=== PATIENT | female | born 1950 | race Caucasian/White ===

== ENCOUNTER → 2019-11-13 | Day surgery (SDC) | payer MEDICARE, BC ==
[~2019-11-13] MED LIST: Bupivacaine 0.25% 10 ML SDV ONE; Ketorolac 15 MG/ML SDV ONE; Lactated Ringers 1,000 ML IV SCH; Lidocaine 0.5% 50 ML SDV ONE; Lidocaine 1% 4 ML ONE; Lidocaine 1%/Sod Bicarbonate in NS 8.4% 1 ML Syringe IDERM PRN; Midazolam 1 MG/ML 2 ML SDV ONE; Ondansetron 4 MG/2 ML SDV IVPUSH PRN; Propofol 200 MG/20 ML SDV ONE; Sodium Bicarbonate 8.4% 50 MEQ/50 ML SDV ONE; Sodium Chloride 0.9% 10 ML Syringe FLUSH PRN; ceFAZolin 1 GM Vial ONE; fentaNYL 100 MCG/2 ML SDV IVPUSH PRN; fentaNYL 100 MCG/2 ML SDV ONE
--- NOTE | 2019-11-13 07:33 | PCM.PREANE ---
Preanesthetic Assessment - Procedure Proposed Procedure: left carpal tunnel and release thumb - Anesthesia/Transfusion/Family Hx Anesthesia History: Prior Anesthesia Without Reaction Family History of Anesthesia Reaction: No Transfusion History: No Prior Transfusion(s) - Review of Systems General: No Symptoms Pulmonary: No Symptoms Cardiovascular: No Symptoms Gastrointestinal: No Symptoms Neurological: No Symptoms Other: Reports: None - Physical Assessment NPO Status Date: 11/12/19 NPO Status Time: 19:00 Vital Signs: Last Vital Signs Temp 96.8 F L 11/13/19 06:20 Pulse 64 11/13/19 06:20 Resp 16 11/13/19 06:20 BP 122/61 11/13/19 06:20 Pulse Ox 94 L 11/13/19 06:20 Height: 5 ft Weight: 69.4 kg ASA Class: 2 Mental Status: Alert & Oriented x3 Airway Class: Mallampati = 1 Dentition: Reports: Normal Dentition Thyro-Mental Finger Breadths: 3 Mouth Opening Finger Breadths: 3 ROM/Head Extension: Full Lungs: Clear to Auscultation, Normal Respiratory Effort Cardiovascular: Regular Rate, Regular Rhythm - Allergies Allergies/Adverse Reactions: Allergies Allergy/AdvReac Type Severity Reaction Status Date / Time No Known Allergies Allergy Verified 11/12/19 15:48 - Blood Blood Available: No - Acknowledgements Anesthesia Type Planned: LISETTE Pt an Appropriate Candidate for the Planned Anesthesia: Yes Alternatives and Risks of Anesthesia Discussed w Pt/Guardian: Yes Pt/Guardian Understands and Agrees with Anesthesia Plan: Yes PreAnesthesia Questionnaire HEENT History: Reports: Impaired Vision, Other (See Below) Other HEENT History: wears glasses Cardiovascular History: Reports: High Cholesterol Respiratory History: Reports: None Gastrointestinal History: Reports: None Genitourinary History: Reports: None 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 Musculoskeletal History: Reports: Other (See Below) Other Musculoskeletal History: left thumb trigger finger, left hand pisiform Neurological History: Reports: None Psychiatric History: Reports: None Endocrine/Metabolic History: Reports: None Hematologic History: Reports: None Immunologic History: Reports: None Oncologic (Cancer) History: Reports: None Dermatologic History: Reports: None - Past Surgical History Head Surgeries/Procedures: Reports: None HEENT Surgical History: Reports: None Cardiovascular Surgical History: Reports: None Respiratory Surgical History: Reports: None GI Surgical History: Reports: Colonoscopy Female Surgical History: Reports: Hysterectomy Male Surgical History: Reports: None Endocrine Surgical History: Reports: None Neurological Surgical History: Reports: None Musculoskeletal Surgical History: Reports: Other (See Below) (wrist surgery) Oncologic Surgical History: Reports: None Dermatological Surgical History: Reports: None - SUBSTANCE USE Smoking Status *Q: Never Smoker Tobacco Use Within Last Twelve Months: No Second Hand Smoke Exposure: No Days Per Week of Alcohol Use: 0 Recreational Drug Use History: No - HOME MEDS Home Medications: Home Meds Albuterol [Proventil HFA] 1 - 2 puff INH Q4H PRN 11/12/19 [History] atorvaSTATin [Lipitor] 10 mg PO DAILY 11/12/19 [History] - CURRENT (IN HOUSE) MEDS Current Meds: Current Medications Lactated Ringer's (Ringers, Lactated) 1,000 mls @ 125 mls/hr IV ASDIRECTED AMINA Stop: 11/13/19 23:00 Last Admin: 11/13/19 06:50 Dose: 125 mls/hr Documented by: Lidocaine/Sodium Bicarbonate (Buffered Lidocaine 1% In Ns 8.4%) 0.25 ml IDERM ONETIME PRN PRN Reason: Prior to IV Start Stop: 11/13/19 18:00 Last Admin: 11/13/19 06:49 Dose: 0.25 ml Documented by: Sodium Chloride (Saline Flush) 10 ml FLUSH ASDIRECTED PRN PRN Reason: Keep Vein Open Stop: 11/13/19 18:00 Discontinued Medications Cefazolin Sodium (Ancef) Confirm Administered Dose 2 gm .ROUTE .STK-MED ONE Stop: 11/13/19 07:17 Fentanyl (Sublimaze) Confirm Administered Dose 100 mcg .ROUTE .STK-MED ONE Stop: 11/13/19 07:15 Lidocaine HCl (Xylocaine-Mpf 1%) Confirm Administered Dose 4 mls @ as directed .ROUTE .STK-MED ONE Stop: 11/13/19 07:14 Lidocaine HCl (Xylocaine-Mpf 0.5%) Confirm Administered Dose 50 ml .ROUTE .STK- MED ONE Stop: 11/13/19 07:18 Midazolam HCl (Versed 1 Mg/Ml) Confirm Administered Dose 2 mg .ROUTE .STK-MED ONE Stop: 11/13/19 07:15 Propofol (Diprivan 20 Ml) Confirm Administered Dose 200 mg .ROUTE .STK-MED ONE Stop: 11/13/19 07:14 Sodium Bicarbonate (Sodium Bicarbonate 8.4%) Confirm Administered Dose 50 meq .ROUTE .STK-MED ONE Stop: 11/13/19 07:18
--- NOTE | 2019-11-13 09:13 | PCM48HPAN ---
Post Anesthesia Note - EVALUATION WITHIN 48HRS OF ANESTHETIC Vital Signs in Normal Range: Yes Patient Participated in Evaluation: Yes Respiratory Function Stable: Yes Airway Patent: Yes Cardiovascular Function Stable: Yes Hydration Status Stable: Yes Pain Control Satisfactory: Yes Nausea and Vomiting Control Satisfactory: Yes Mental Status Recovered: Yes Vital Signs: Last Vital Signs Temp 96.8 F L 11/13/19 06:20 Pulse 64 11/13/19 06:20 Resp 16 11/13/19 06:20 BP 122/61 11/13/19 06:20 Pulse Ox 94 L 11/13/19 06:20 0906 52 16 97.1 111/59 94%
--- NOTE | 2019-11-24 07:55 | OR ---
DATE OF OPERATION: 11/13/2019 SURGEON: Ronnie Rincon MD PREOPERATIVE DIAGNOSIS: 1. Left carpal tunnel syndrome. 2. Left thumb stenosing tenosynovitis. POSTOPERATIVE DIAGNOSIS: 1. Left carpal tunnel syndrome. 2. Left thumb stenosing tenosynovitis. OPERATION PERFORMED: 1. Left open carpal tunnel release, 35464. 2. Left thumb A1 nasreen release, 61878. WORKERS COMPENSATION ATTORNEY: Nani. DESCRIPTION OF PROCEDURE: The patient is a pleasant female with symptomatic left carpal tunnel syndrome as well as stenosing tenosynovitis of her left thumb. The patient wished to proceed with surgery. The patient was brought to the operating room and underwent appropriate anesthesia. Left upper extremity was prepped and draped in standard orthopedic fashion. A surgical pause was performed identifying the appropriate patient and appropriate extremity to be operated upon. Preoperative antibiotics were given. Made a longitudinal incision between the thenar and hypothenar eminence. Sharp dissection was carried down through the skin and subcutaneous tissue. Hemostasis was obtained. She did have a traversing sensory branch which was mobilized and protected. We incised the palmar fascial fibers down to the transverse carpal ligament. Utilizing [place] blade, we opened the ulnar aspect of the transverse carpal ligament and released the transverse carpal ligament down to the superficial palmar arch. We turned our attention proximally and released the transverse carpal ligament as well as antebrachial fascia 2 to 3 cm proximal to the wrist crease. It did show us she had some fusiform compression of the nerve at the junction between the transverse carpal ligament and antebrachial fascia. No other abnormalities were noted other than some synovitis. We turned our attention to left thumb, made a transverse incision over left thumb MP flexion crease. Sharp dissection was carried down through the skin and subcutaneous tissue. Hemostasis was obtained. Dissected down and identified the radial and ulnar neurovascular bundles, those were protected. Incised at the A1 nasreen and reached the flexor tendon sheath proximally. She had some fair amount of fluid within the flexor tendon sheath. With passive flexion, she had no mechanical symptoms. The wounds were irrigated thoroughly. The wounds were then closed with 5-0 nylon. She was placed in a soft dressing and brought to the recovery room in satisfactory condition. ANESTHESIA: ESTIMATED BLOOD LOSS: MMODAL /[id number]
== END | disposition home or self-care (01) ==
LOC: JD.SDS 06:19
PROVIDERS: ATTEND Orthopaedic Surgery
DX: G56.02 Carpal tunnel syndrome, left upper limb (principal); M65.842 Other synovitis and tenosynovitis, left hand; M65.312 Trigger thumb, left thumb; E78.00 Pure hypercholesterolemia, unspecified; E66.3 Overweight; Z68.25 Body mass index [BMI] 25.0-25.9, adult; Z01.812 Encounter for preprocedural laboratory examination; Z20.828 Contact with and (suspected) exposure to other viral communicable diseases; Z79.899 Other long term (current) drug therapy; Z98.890 Other specified postprocedural states
CPT/HCPCS: 26055; 64721; 87641; J0690; J1885; J2001; J2250; J2704; J3010; J3490; J7120; U0002; 01810